=== PATIENT | female | born 1955 | race Caucasian/White ===

== ENCOUNTER → 2017-08-14 | Outpatient (CLI) | payer OTHER ==
[~2017-08-14] MED LIST: CHOL100010 PO; MELO-84 PO; VALA500T60 PO
== END | disposition home or self-care (01) ==
LOC: C.PATHSPEC 17:15
PROVIDERS: ATTEND Surgery
DX: L72.0 Epidermal cyst (principal)

== ENCOUNTER → 2017-08-21 | Outpatient (CLI) | payer OTHER ==
--- NOTE | 2017-08-22 13:47 | MAMMOGRAPHY REPORT ---
BILATERAL DIGITAL SCREENING MAMMOGRAM TOMOSYNTHESIS WITH CAD: 08/21/2017 CLINICAL HISTORY: Routine screening. Patient has no complaints. TECHNIQUE: Breast tomosynthesis in addition to standard 2D mammography was performed. Current study was also evaluated with a Computer Aided Detection (CAD) system. COMPARISON: Comparison is made to exams dated: 08/05/2015 mammogram, 08/15/2016 mammogram, 05/12/2014 mammogram, 03/19/2013 mammogram, 02/21/2012 mammogram - [facility], and 06/02/2009. BREAST COMPOSITION: There are scattered areas of fibroglandular density in both breasts. FINDINGS: The parenchymal pattern is unchanged. No developing mass, architectural distortion or clus ter of suspicious microcalcifications is seen in either breast. IMPRESSION: ACR BI-RADS CATEGORY 2: BENIGN There is no mammographic evidence of malignancy. A 1 year screening mammogram is recommended. The pa tient will receive written notification of the results. Approximately 10% of breast cancers are not detected with mammography. A negative mammographic report should not delay biopsy if a clinically suggestive mass is present. Tanesha He M.D. ay/:08/21/2017 16:50:33 Workday Manager: Jailene Hinojosa, [facility] letter sent: Normal 1/2 BI-RADS Code: ACR BI-RADS Category 2: Benign
== END | disposition home or self-care (01) ==
LOC: C.MAMM 12:58
PROVIDERS: ATTEND Internal Medicine
DX: Z12.31 Encounter for screening mammogram for malignant neoplasm of breast (principal)

== ENCOUNTER → 2017-09-23 | Outpatient (CLI) | payer OTHER ==
[~2017-09-23] MED LIST changes: -MELO-84 PO; +MELO15TA4 PO
== END | disposition home or self-care (01) ==
LOC: C.MAMM 07:57
PROVIDERS: ATTEND Internal Medicine
DX: M85.88 Other specified disorders of bone density and structure, other site (principal); M81.0 Age-related osteoporosis without current pathological fracture

== ENCOUNTER → 2017-10-29 | Outpatient (CLI) | payer OTHER ==
[~2017-10-29] MED LIST changes: +MELO-84 PO; -MELO15TA4 PO
--- NOTE | 2017-10-29 09:49 | DIAGNOSTIC IMAGING REPORT ---
SI JOINTS 3 OR MORE VIEWS HISTORY: 62 years-old Female K21.9 Gastroesophageal reflux [id number] Inflammation of both acute low back pain COMPARISON: SI joint radiographs 06/15/2016 TECHNIQUE: 3 views of the SI joints FINDINGS: Mild degenerative changes of the bilateral SI joints. No erosive changes to suggest sacroiliitis. There is no acute fracture or dislocation. Imaged ribs appear intact. Mild degenerative changes of the lower lumbar spine. IMPRESSION: Mild degenerative changes of the bilateral SI joints without acute fracture or subluxation. The above report was generated using voice recognition software. It may contain grammatical, syntax or spelling errors. Electronically signed by: Bong Santana M.D. 10/29/2017 9:47 AM Dictated Date/Time: 10/29/2017 9:46 AM
== END | disposition home or self-care (01) ==
LOC: C.RAD1850 09:03
PROVIDERS: ATTEND Internal Medicine Rheumatology
DX: E61.8 Deficiency of other specified nutrient elements (principal); K21.9 Gastro-esophageal reflux disease without esophagitis; M46.1 Sacroiliitis, not elsewhere classified; M54.5 Low back pain; M81.0 Age-related osteoporosis without current pathological fracture

== ENCOUNTER → 2017-10-31 | Outpatient (CLI) | payer OTHER | END | disposition home or self-care (01) | LOC: C.LABSPEC 07:11 | PROVIDERS: ATTEND Internal Medicine Rheumatology | DX: K21.9 Gastro-esophageal reflux disease without esophagitis (principal); M46.1 Sacroiliitis, not elsewhere classified; M54.5 Low back pain; M81.0 Age-related osteoporosis without current pathological fracture; E61.8 Deficiency of other specified nutrient elements ==

== ENCOUNTER → 2017-11-06 | Outpatient (CLI) | payer OTHER ==
--- NOTE | 2017-11-06 14:38 | DIAGNOSTIC IMAGING REPORT ---
MRI OF THE SACROILIAC JOINTS WITHOUT CONTRAST CLINICAL HISTORY: Inflammation of both sacroiliac joints. COMPARISON STUDY: Sacroiliac joint radiographs October 29, 2017. TECHNIQUE: Utilizing a 1.5 Areli magnet and dedicated coil, multiplanar, multiecho imaging of the sacroiliac joints was performed without intravenous contrast. FINDINGS: The sacroiliac joints are intact without evidence for ankylosis. There is no significant marrow edema or increased fluid within the sacroiliac joints. No erosions are identified along the sacroiliac joints. The adjacent soft tissues are unremarkable. No suspicious marrow replacement is present. There is moderate to marked disc space narrowing with osteophytosis at L5-S1. Note is made of a 1.6 cm T2 hyperintense lesion within the left aspect of L4. This is slightly hypointense on the T1-weighted sequence. This is nonspecific although favors a hemangioma. IMPRESSION: 1. No evidence of sacroiliitis. Unremarkable MRI of the sacroiliac joints. 2. Moderate to marked disc space narrowing at L5-S1 with osteophytosis. 3. 1.6 cm T2 hyperintense lesion within the L4 vertebral body. While nonspecific, a hemangioma is favored. Electronically signed by: Haja Niño M.D. 11/06/2017 2:37 PM Dictated Date/Time: 11/06/2017 2:32 PM
== END | disposition home or self-care (01) ==
LOC: C.MRI 13:35
PROVIDERS: ATTEND Internal Medicine Rheumatology
DX: M46.1 Sacroiliitis, not elsewhere classified (principal); M51.27 Other intervertebral disc displacement, lumbosacral region